=== PATIENT | female | born 1980 | race Caucasian/White ===

== ENCOUNTER → 2017-12-27 | Outpatient (REF) ==
[2017-02-05 20:36] VITALS: BMI 43.4
[~2017-12-27] MED LIST: AMOX500T10 PO; Acetaminophen PO; Benzocaine 60 ML TP; CODE118S5 PO; DOCU240C67 PO; IBUP800T37 PO; Ibuprofen PO; LOR5/325 PO; Lanolin TP; NORE0.3529 PO; PHEN118S56 PO; PNV11TAB; PREN-127 PO; TOBR5DRO43 OU; TUCKS TP
[2017-12-27 07:41] LABS: LDL CHOLESTEROL 66 mg/dl
== END ==
DX: Z02.9 Encounter for administrative examinations, unspecified (principal)

== ENCOUNTER → 2018-12-18 | Outpatient (REF) ==
[2017-02-05 20:36] VITALS: BMI 43.4
[2018-12-18 08:00] LABS: LDL CHOLESTEROL 70 mg/dl
== END ==
DX: Z02.9 Encounter for administrative examinations, unspecified (principal)

== ENCOUNTER → 2019-01-02 | Outpatient (CLI) | payer OTHER ==
[2017-02-05 20:36] VITALS: BMI 43.4
--- NOTE | 2019-01-03 16:03 | RADIOLOGY IMAGING REPORT ---
FAC[place] [facility] [place] NAME: MYKEL SHELTON : [id number] MR: [id number] V: [id number] EXAM DATE: [id number] ORDERING PHYSICIAN: PAULINA ALY TECHNOLOGIST: Anabella Stephens PROCEDURE:BILATERAL DIAGNOSTIC DIGITAL MAMMOGRAM WITH CAD ASSISTED INTERPRETATION & 3D TOMOSYNTHESIS REASON FOR STUDY: Palpable lump in the upper outer quadrant of the Right breast. FAMILY HISTORY OF BREAST CANCER: None. BREAST PROCEDURES/TREATMENTS: None. COMPARISON STUDIES: None. MAMMOGRAM VIEWS OBTAINED: Bilateral 2D & 3D full field CC & MLO projections. BREAST DENSITY: The breasts are heterogeneously dense which can obscure small masses. MAMMOGRAM FINDINGS: There was no demonstration of malignant appearing mass or calcification in either breast. ULTRASOUND AREA SCANNED: The 8 o'clock & 9:30 position of the Right breast in location of patient's palpable findings. ULTRASOUND FINDINGS: There is no sonographic correlate to account for patient's palpable findings therefore clinical follow-up recommended. DIAGNOSTIC CATEGORY 1--NEGATIVE. RECOMMENDATIONS: ROUTINE MAMMOGRAM AND CLINICAL EVALUATION. CLINICAL EVALUATION. IMPRESSION: BIRADS 1: Negative. No mammographic or sonographic abnormality identified therefore clinical follow-up recommended for patient's palpable finding in the upper outer quadrant of the Right breast. Dictated by: Archana Wheat M.D. on 01/02/2019 at 16:42 Transcribed by: [email or web address] on 01/03/2019 at 9:47 Approved by: Archana Wheat M.D. on 01/03/2019 at 16:02 [facility]
--- NOTE | 2019-01-03 16:03 | RADIOLOGY IMAGING REPORT ---
FACILITY: [facility] PATIENT NAME: MYKEL SHELTON : [id number] MR: [id number] V: [id number] EXAM DATE: ORDERING PHYSICIAN: PAULINA ALY TECHNOLOGIST: Daniel Fontaine RDMS, RD PROCEDURE:US RIGHT BREAST REASON FOR STUDY: Palpable lump in the upper outer quadrant of the Right breast. FAMILY HISTORY OF BREAST CANCER: None. BREAST PROCEDURES/TREATMENTS: None. COMPARISON STUDIES: None. AREA SCANNED: The 8 o'clock & 9:30 position of the Right breast in location of patient's palpable findings. ULTRASOUND FINDINGS: There is no sonographic correlate to account for patient's palpable findings therefore clinical follow-up recommended. DIAGNOSTIC CATEGORY 1--NEGATIVE. RECOMMENDATIONS: ROUTINE MAMMOGRAM AND CLINICAL EVALUATION. CLINICAL EVALUATION. IMPRESSION: BIRADS 1: Negative. No mammographic or sonographic abnormality identified therefore clinical follow-up recommended for patient's palpable finding in the upper outer quadrant of the Right breast. Dictated by: Archana Wheat M.D. on 01/02/2019 at 16:42 Transcribed by: JOSEFA on 01/03/2019 at 9:46 Approved by: Archana Wheat M.D. on 01/03/2019 at 16:02 [facility]
== END ==
LOC: MAMO 01:04
PROVIDERS: ATTEND Nurse Practitioner Family
DX: N63.10 Unspecified lump in the right breast, unspecified quadrant (principal)
CPT/HCPCS: 77062; 77066